=== PATIENT | male | born 1950 | race Two or more races ===

== ENCOUNTER 2022-09-07 13:04 | Inpatient (IN) | payer MEDICARE, OTHER ==
[~2022-09-07] VITALS: Ht 185.4 cm; Wt 81.2 kg
[2022-09-07 16:00] VITALS: BP 145/71
[2022-09-07] MEDS ORDERED: HYDRALAZINE 20MG/ML VIAL IV PRN (19:15)
[2022-09-07 20:00] VITALS: BP 151/93
[2022-09-07] MEDS ORDERED: ACETAMINOPHEN 325MG TABLET PO PRN (20:45)
[2022-09-07] MEDS ORDERED: MAGNESIUM/ALUMINUM HYDROXIDE/SIMETHICONE 30ML UDC PO PRN (20:45)
[2022-09-07] MEDS ORDERED: DOCUSATE SODIUM 100MG CAPSULE PO PRN (20:45)
[2022-09-07] MEDS ORDERED: CLONIDINE 0.1MG TABLET PO PRN (20:45)
[2022-09-07] MEDS ORDERED: IPRATROPIUM/ALBUTEROL 0.5-3(2.5)MG/3ML NEB NEB PRN (20:45)
[2022-09-07 20:53] LABS: BASOPHILS % 0.5 % (0.0-2.0); EOSINOPHILS % 3.9 % (0.0-5.0); HEMATOCRIT. 42.9 % (42.0-52.0); HEMOGLOBIN. 14.7 g/dL (14.0-18.0); MEAN CORPUSCULAR HEMOGLOBIN 32.2 pg (28.0-32.0); MEAN CORPUSCULAR VOLUME 93.9 fL (80.0-94.0); MONOCYTES % 7.6 % (2.0-8.0); PLATELET 293 x1000/uL (130-400); RED BLOOD CELL COUNT 4.57 mill/uL (4.7-6.1); RED CELL DISTRIBUTION WIDTH 14.5 % (11.6-14.6)
[2022-09-07] MEDS ORDERED: ALBUTEROL (0.083%) 2.5MG/3ML NEB HHN PRN (21:00)
[2022-09-07] MEDS ORDERED: IPRATROPIUM BROMIDE (0.02%) 0.5MG/2.5ML NEB HHN PRN (21:00)
[2022-09-07 21:02] LABS: PROTHROMBIN TIME 11.1 sec (9.6-11.0)
[2022-09-07 21:11] LABS: CHLORIDE 98 mEq/L (98-107)
[2022-09-07] MEDS: DEXT 5%/LACTATED RINGERS 1,000 ML IV SCH (21:35)
[2022-09-07 22:18] LABS: CREATINE KINASE MB FRACTION 5.8 ng/mL (0.5-3.6); PHOSPHORUS 3.3 mg/dL (2.5-4.9)
[2022-09-07] MEDS ORDERED: DEXTROSE 50% WATER 50ML SYRINGE IV PRN (22:30)
[2022-09-08] VITALS (32 sets, daily range): BP systolic 78–159; BP diastolic 46–92
[2022-09-08] MEDS: BLOOD SUGAR DIAGNOSTIC STRIP TEST SCH ×4 (07:40→21:20)
[2022-09-08 08:11] LABS: BASOPHILS % 0.4 % (0.0-2.0); EOSINOPHILS % 6.8 % (0.0-5.0); HEMATOCRIT. 42.9 % (42.0-52.0); HEMOGLOBIN. 14.5 g/dL (14.0-18.0); MEAN CORPUSCULAR HEMOGLOBIN 31.5 pg (28.0-32.0); MEAN CORPUSCULAR VOLUME 92.9 fL (80.0-94.0); MEAN PLATELET VOLUME 6.5 fl (7.4-10.4); MONOCYTES % 8.3 % (2.0-8.0); NEUTROPHILS % 57.5 % (40.0-76.0); PLATELET 276 x1000/uL (130-400); RED BLOOD CELL COUNT 4.61 mill/uL (4.7-6.1); RED CELL DISTRIBUTION WIDTH 14.1 % (11.6-14.6)
[2022-09-08 08:19] LABS: CHLORIDE 100 mEq/L (98-107)
[2022-09-08 08:33] LABS: HDL CHOLESTEROL 63 mg/dL (40-59); LDL CHOLESTEROL 42 mg/dL (5-100); T4 FREE 1.11 ng/dL (0.76-1.46)
[2022-09-08] MEDS ORDERED: MORPHINE SULFATE 4 MG/ML CPJ (NOT FOR IM USE) IV PRN (08:45)
[2022-09-08] MEDS: PANTOPRAZOLE SODIUM 40 MG/VIAL IV SCH (09:00)
[2022-09-08] MEDS ORDERED: GADOTERATE MEGLUMINE 5 MMOL/10 ML VIAL IV ONE (09:40)
[2022-09-08] MEDS ORDERED: THROMBIN (BOVINE) 5000 UNITS/VIAL TOP ONE (10:25)
[2022-09-08] MEDS ORDERED: BACITRACIN 15GM TUBE TOP ONE (10:25)
[2022-09-08] MEDS ORDERED: GENTAMICIN SULF 40MG/ML 2ML VIAL ONE (10:25)
[2022-09-08] MEDS ORDERED: LIDOCAINE HCL/EPINEPHRINE 1%-EPI 1:100,000 20 ML VIAL ONE ×2 (10:25)
[2022-09-08] MEDS: DEXT 5%/LACTATED RINGERS 1,000 ML IV SCH ×2 (11:55→17:59)
[2022-09-08] MEDS ORDERED: FENTANYL CITRATE/PF 50MCG/ML 2ML VIAL ONE ×3 (12:35→15:31)
[2022-09-08] MEDS ORDERED: PROPOFOL 200MG/20ML VIAL IV ONE (12:35)
[2022-09-08] MEDS ORDERED: ROCURONIUM BROMIDE 10MG/ML VIAL 5ML IV ONE ×3 (12:35→15:57)
[2022-09-08] MEDS ORDERED: GLYCOPYRROLATE 0.2 MG/ML 2ML VIAL ONE ×2 (14:01→14:58)
[2022-09-08] MEDS ORDERED: CEFAZOLIN SODIUM 1000MG/VIAL ONE ×2 (14:14→14:57)
[2022-09-08] MEDS ORDERED: DEXAMETHASONE 4MG/ML 1ML VIAL ONE (14:57)
[2022-09-08] MEDS ORDERED: ONDANSETRON HCL 4MG/2ML INJ ONE (14:57)
[2022-09-08] MEDS ORDERED: METOCLOPRAMIDE HCL 10MG/2ML VIAL ONE (14:57)
[2022-09-08] MEDS ORDERED: NEOSTIGMINE METHYLSULFATE 1MG/ML 10 ML VIAL ONE (14:58)
[2022-09-08] MEDS ORDERED: EPHEDRINE SULFATE 50MG/ML VIAL ONE (14:59)
[2022-09-08] MEDS ORDERED: KETOROLAC 30MG/ML VIAL ONE (15:31)
[2022-09-08] MEDS ORDERED: PROPOFOL 10MG/ML 100ML 100 ML IV ONE (15:37)
[2022-09-08] MEDS ORDERED: NALOXONE HCL 0.4MG/ML VIAL IV PRN (16:00)
[2022-09-08] MEDS ORDERED: FENTANYL CITRATE/PF 2,500 MCG in SODIUM CHLORIDE 0.9% 200 ML IV PRN (17:00)
[2022-09-08 17:07] LABS: BG BASE EXCESS -7.9 mmol/L (-2.0-2.0); BG CARBOXYHEMOGLOBIN 0.8 % (0.5-1.5); BG DEOXYHEMOGLOBIN 0.6 % (0.0-5.0); BG FRACTION INSPIRED OXYGEN 60; BG HCO3 ACT 18.3 mmol/L (22.0-26.0); BG METHEMOGLOBIN 0.3 % (0.0-1.5); BG OXYGEN SATURATION 99.4 % (92.0-98.5); BG OXYHEMOGLOBIN 98.3 % (94.0-97.0); BG PH 7.279 (7.350-7.450); BG PO2 223.5 mmHg (75.0-100.0); BG SAMPLE SITE ALINE; BG TOTAL HEMOGLOBIN 14.1 g/dL (12.0-18.0); BG VENT MODE VENT - AC
[2022-09-08] MEDS: NICARDIPINE 100 MG in SODIUM CHLORIDE 0.9% 60 ML IV PRN (17:57)
[2022-09-08] MEDS: PROPOFOL 10MG/ML 100ML 100 ML IV PRN (17:58)
[2022-09-08] MEDS: LEVETIRACETAM 500MG PREMIX 100 ML IV SCH (19:03)
[2022-09-08] MEDS: DEXAMETHASONE 4MG/ML 1ML VIAL IV SCH ×2 (20:49→23:45)
[2022-09-08] MEDS ORDERED: CEFAZOLIN SODIUM 1000MG/VIAL IV SCH (22:00)
[2022-09-08] MEDS: CEFAZOLIN 1000MG PREMIX 50 ML IV SCH (22:41)
[2022-09-08 23:21] LABS: BG BASE EXCESS -6.4 mmol/L (-2.0-2.0); BG CARBOXYHEMOGLOBIN 0.3 % (0.5-1.5); BG DEOXYHEMOGLOBIN 2.2 % (0.0-5.0); BG FRACTION INSPIRED OXYGEN 40; BG HCO3 ACT 19.7 mmol/L (22.0-26.0); BG METHEMOGLOBIN 0.2 % (0.0-1.5); BG OXYGEN SATURATION 97.8 % (92.0-98.5); BG OXYHEMOGLOBIN 97.3 % (94.0-97.0); BG PCO2 41.4 mmHg (35.0-45.0); BG PH 7.296 (7.350-7.450); BG PO2 107.4 mmHg (75.0-100.0); BG SAMPLE SITE ALINE; BG TOTAL HEMOGLOBIN 15.3 g/dL (12.0-18.0); BG TOTAL RESPIRATORY RATE 20 b/min; BG VENT MODE VENT - AC
[2022-09-08] MEDS: MORPHINE SULFATE 4 MG/ML CPJ (NOT FOR IM USE) IV PRN (23:45)
[2022-09-09] VITALS (98 sets, daily range): BP systolic 77–137; BP diastolic 26–126
[2022-09-09] MEDS: PROPOFOL 10MG/ML 100ML 100 ML IV PRN (05:11)
[2022-09-09] MEDS: DEXAMETHASONE 4MG/ML 1ML VIAL IV SCH ×3 (05:11→17:47)
[2022-09-09] MEDS: CEFAZOLIN 1000MG PREMIX 50 ML IV SCH ×3 (05:13→21:08)
[2022-09-09] MEDS: BLOOD SUGAR DIAGNOSTIC STRIP TEST SCH ×4 (06:43→21:08)
[2022-09-09] MEDS: MORPHINE SULFATE 4 MG/ML CPJ (NOT FOR IM USE) IV PRN ×3 (07:19→21:09)
[2022-09-09 08:09] LABS: BG CARBOXYHEMOGLOBIN 0.9 % (0.5-1.5); BG DEOXYHEMOGLOBIN 2.1 % (0.0-5.0); BG HCO3 ACT 20.2 mmol/L (22.0-26.0); BG METHEMOGLOBIN 0.3 % (0.0-1.5); BG OXYGEN SATURATION 97.9 % (92.0-98.5); BG OXYHEMOGLOBIN 96.7 % (94.0-97.0); BG PCO2 34.8 mmHg (35.0-45.0); BG PH 7.382 (7.350-7.450); BG PO2 99.6 mmHg (75.0-100.0); BG SAMPLE SITE ALINE; BG TOTAL HEMOGLOBIN 15.3 g/dL (12.0-18.0); BG VENT MODE VENT - AC
[2022-09-09] MEDS: DEXT 5%/LACTATED RINGERS 1,000 ML IV SCH (08:25)
[2022-09-09] MEDS: PANTOPRAZOLE SODIUM 40 MG/VIAL IV SCH (08:56)
[2022-09-09] MEDS: LEVETIRACETAM 500MG PREMIX 100 ML IV SCH ×2 (08:57→21:08)
[2022-09-09] MEDS ORDERED: ONDANSETRON HCL 4MG/2ML INJ IV PRN (13:15)
[2022-09-09 15:38] LABS: BG BASE EXCESS -3.3 mmol/L (-2.0-2.0); BG CARBOXYHEMOGLOBIN 0.3 % (0.5-1.5); BG DEOXYHEMOGLOBIN 4.1 % (0.0-5.0); BG HCO3 ACT 21.6 mmol/L (22.0-26.0); BG METHEMOGLOBIN 0.3 % (0.0-1.5); BG OXYGEN SATURATION 95.9 % (92.0-98.5); BG OXYHEMOGLOBIN 95.3 % (94.0-97.0); BG PCO2 38.6 mmHg (35.0-45.0); BG PH 7.366 (7.350-7.450); BG SAMPLE SITE ALINE; BG VENT MODE COOL AEROSOL T-TUBE
[2022-09-10] VITALS (94 sets, daily range): BP systolic 72–128; BP diastolic 37–65
[2022-09-10] MEDS: NICARDIPINE 100 MG in SODIUM CHLORIDE 0.9% 60 ML IV PRN ×2 (01:01→17:42)
[2022-09-10] MEDS: DEXT 5%/LACTATED RINGERS 1,000 ML IV SCH ×2 (01:02→16:45)
[2022-09-10] MEDS: BLOOD SUGAR DIAGNOSTIC STRIP TEST SCH ×4 (05:33→21:40)
[2022-09-10] MEDS: CEFAZOLIN 1000MG PREMIX 50 ML IV SCH ×3 (05:33→21:40)
[2022-09-10] MEDS: LEVETIRACETAM 500MG PREMIX 100 ML IV SCH ×2 (08:27→21:40)
[2022-09-10] MEDS: PANTOPRAZOLE SODIUM 40 MG/VIAL IV SCH (08:27)
[2022-09-10] MEDS: NICOTINE 14MG PATCH TD SCH (10:44)
[2022-09-10] MEDS: MORPHINE SULFATE 4 MG/ML CPJ (NOT FOR IM USE) IV PRN ×2 (13:23→18:07)
[2022-09-11] VITALS (64 sets, daily range): BP systolic 67–142; BP diastolic 42–76
[2022-09-11] MEDS: BLOOD SUGAR DIAGNOSTIC STRIP TEST SCH ×4 (06:30→20:09)
[2022-09-11] MEDS: LEVETIRACETAM 500MG PREMIX 100 ML IV SCH ×2 (08:00→22:00)
[2022-09-11] MEDS: PANTOPRAZOLE SODIUM 40 MG/VIAL IV SCH (08:00)
[2022-09-11] MEDS: NICOTINE 14MG PATCH TD SCH (08:01)
[2022-09-11] MEDS: DEXT 5%/LACTATED RINGERS 1,000 ML IV SCH (10:19)
[2022-09-11] MEDS: MORPHINE SULFATE 4 MG/ML CPJ (NOT FOR IM USE) IV PRN ×2 (11:20→18:04)
[2022-09-11] MEDS: ACETAMINOPHEN 325MG TABLET PO PRN (14:18)
[2022-09-11] MEDS ORDERED: HYDRALAZINE 5 MG in SODIUM CHLORIDE 0.9% 49.5 ML IV PRN (19:15)
[2022-09-11] MEDS ORDERED: HYDRALAZINE 5 MG in SODIUM CHLORIDE 0.9% 49.75 ML IV PRN (19:15)
[2022-09-12] VITALS: BP 139/80
[2022-09-12] MEDS: DEXT 5%/LACTATED RINGERS 1,000 ML IV SCH ×2 (03:25→20:45)
[2022-09-12 04:00] VITALS: BP 134/62
[2022-09-12 07:19] LABS: BASOPHILS % 0.1 % (0.0-2.0); EOSINOPHILS % 0.4 % (0.0-5.0); HEMATOCRIT. 36.8 % (42.0-52.0); HEMOGLOBIN. 12.8 g/dL (14.0-18.0); LYMPHOCYTES % 18.7 % (20.0-50.0); MEAN CORPUSCULAR HEMOGLOBIN 32.5 pg (28.0-32.0); MEAN CORPUSCULAR VOLUME 93.2 fL (80.0-94.0); MEAN PLATELET VOLUME 7.2 fl (7.4-10.4); NEUTROPHILS % 73.8 % (40.0-76.0); PLATELET 269 x1000/uL (130-400); RED BLOOD CELL COUNT 3.95 mill/uL (4.7-6.1); RED CELL DISTRIBUTION WIDTH 14.1 % (11.6-14.6)
[2022-09-12 07:23] LABS: CHLORIDE 98 mEq/L (98-107)
[2022-09-12] MEDS: BLOOD SUGAR DIAGNOSTIC STRIP TEST SCH ×4 (07:51→21:00)
[2022-09-12] MEDS: LOSARTAN POTASSIUM 50 MG TABLET PO SCH (09:37)
[2022-09-12] MEDS: PANTOPRAZOLE SODIUM 40 MG/VIAL IV SCH (09:37)
[2022-09-12] MEDS: NICOTINE 14MG PATCH TD SCH (09:37)
[2022-09-12] MEDS: MORPHINE SULFATE 4 MG/ML CPJ (NOT FOR IM USE) IV PRN (09:45)
[2022-09-12] MEDS: LEVETIRACETAM 500MG PREMIX 100 ML IV SCH ×2 (11:38→20:46)
[2022-09-12 12:00] VITALS: BP 107/72
[2022-09-12] MEDS: ACETAMINOPHEN 325MG TABLET PO PRN (15:47)
[2022-09-12 16:00] VITALS: BP 117/81
[2022-09-12 20:00] VITALS: BP 138/81
[2022-09-12] MEDS ORDERED: IOHEXOL-300 100 ML BOTTLE ONE (21:22)
[2022-09-13] VITALS: BP 123/78
[2022-09-13] MEDS: MORPHINE SULFATE 4 MG/ML CPJ (NOT FOR IM USE) IV PRN (00:19)
[2022-09-13 04:00] VITALS: BP 122/59
[2022-09-13] MEDS: BLOOD SUGAR DIAGNOSTIC STRIP TEST SCH ×4 (07:20→21:00)
[2022-09-13 08:00] VITALS: BP 127/78
[2022-09-13] MEDS: LEVETIRACETAM 500MG PREMIX 100 ML IV SCH ×2 (08:24→22:35)
[2022-09-13] MEDS: FAMOTIDINE 20MG/2ML VIAL IV SCH ×2 (08:24→22:35)
[2022-09-13] MEDS: LOSARTAN POTASSIUM 50 MG TABLET PO SCH (08:25)
[2022-09-13] MEDS: NICOTINE 14MG PATCH TD SCH (08:25)
[2022-09-13] MEDS ORDERED: GADOTERATE MEGLUMINE 5 MMOL/10 ML VIAL IV ONE (09:48)
[2022-09-13 12:00] VITALS: BP 131/86
[2022-09-13] MEDS: DEXT 5%/LACTATED RINGERS 1,000 ML IV SCH (12:25)
[2022-09-13 16:00] VITALS: BP 137/61
[2022-09-13 20:00] VITALS: BP 155/77
[2022-09-14] VITALS: BP 131/93
[2022-09-14 04:00] VITALS: BP 135/60
[2022-09-14] MEDS: DEXT 5%/LACTATED RINGERS 1,000 ML IV SCH ×2 (05:40→14:05)
[2022-09-14] MEDS: BLOOD SUGAR DIAGNOSTIC STRIP TEST SCH ×4 (07:00→21:44)
[2022-09-14 08:00] VITALS: BP 122/71
[2022-09-14] MEDS: LEVETIRACETAM 500MG PREMIX 100 ML IV SCH (09:21)
[2022-09-14] MEDS: FAMOTIDINE 20MG/2ML VIAL IV SCH (09:21)
[2022-09-14] MEDS: LOSARTAN POTASSIUM 50 MG TABLET PO SCH (09:22)
[2022-09-14] MEDS: NICOTINE 14MG PATCH TD SCH (09:23)
[2022-09-14 12:00] VITALS: BP 124/76
[2022-09-14] MEDS: ACETAMINOPHEN 325MG TABLET PO PRN ×2 (12:07→21:07)
[2022-09-14 16:00] VITALS: BP 126/81
[2022-09-14 20:00] VITALS: BP 146/72
[2022-09-14] MEDS: LEVETIRACETAM 500MG TABLET PO SCH (21:07)
[2022-09-14] MEDS: FAMOTIDINE 20MG TABLET PO SCH (21:08)
[2022-09-14] MEDS ORDERED: KETOROLAC 15MG/ML VIAL IV PRN (21:45)
[2022-09-15] VITALS: BP 142/86
[2022-09-15 04:00] VITALS: BP 140/82
[2022-09-15] MEDS: BLOOD SUGAR DIAGNOSTIC STRIP TEST SCH ×3 (07:26→17:23)
[2022-09-15 08:00] VITALS: BP 137/80
[2022-09-15] MEDS: FAMOTIDINE 20MG TABLET PO SCH (09:26)
[2022-09-15] MEDS: LEVETIRACETAM 500MG TABLET PO SCH (09:26)
[2022-09-15] MEDS: LOSARTAN POTASSIUM 50 MG TABLET PO SCH (09:26)
[2022-09-15] MEDS: NICOTINE 14MG PATCH TD SCH (09:27)
[2022-09-15 09:48] VITALS: BP 137/80
[2022-09-15 12:00] VITALS: BP 138/72
[2022-09-15] MEDS: DEXT 5%/LACTATED RINGERS 1,000 ML IV SCH (12:24)
[2022-09-15 16:00] VITALS: BP 127/73
[2022-09-15] MEDS: ACETAMINOPHEN 325MG TABLET PO PRN (17:35)
== END 2022-09-15 18:20 | DRG 25 ==
LOC: 7WST 17:03 → MICUSO 09-08 18:00 → 6EST 09-11 15:50
PROVIDERS: ADMIT Internal Medicine; ATTEND Internal Medicine
PROC: 00BC0ZZ Excision of Cerebellum, Open Approach (ICD-10-PCS; principal; 2022-09-08)
PROC: 009600Z Drainage of Cerebral Ventricle with Drainage Device, Open Approach (ICD-10-PCS; 2022-09-08)
PROC: 00H032Z Insertion of Monitoring Device into Brain, Percutaneous Approach (ICD-10-PCS; 2022-09-08)
PROC: 4A103BD Monitoring of Intracranial Pressure, Percutaneous Approach (ICD-10-PCS; 2022-09-08)
DX: C79.31 Secondary malignant neoplasm of brain (principal); G92.8 Other toxic encephalopathy; J96.00 Acute respiratory failure, unspecified whether with hypoxia or hypercapnia; E44.1 Mild protein-calorie malnutrition; E87.1 Hypo-osmolality and hyponatremia; G91.9 Hydrocephalus, unspecified; C34.90 Malignant neoplasm of unspecified part of unspecified bronchus or lung; D62 Acute posthemorrhagic anemia; F17.210 Nicotine dependence, cigarettes, uncomplicated; I10 Essential (primary) hypertension; M51.36 Other intervertebral disc degeneration, lumbar region; Z20.822 Contact with and (suspected) exposure to COVID-19; J44.9 Chronic obstructive pulmonary disease, unspecified; Z79.899 Other long term (current) drug therapy; Z68.23 Body mass index [BMI] 23.0-23.9, adult
CPT/HCPCS: 31500; 36415; 36600; 70553; 71045; 71260; 74018; 74177; 80048; 80053; 80061; 80305; 82375; 82550; 82553; 82607; 82728; 82746; 82805; 82962; 83036; 83540; 83550; 83735; 83880; 84100; 84439; 84443; 84478; 84484; 85025; 86850; 86900; 87426; 88307; 88331; 93005; 93970; 94002; 94003; 97110; 97116; 97162; 97166; 97530; A6261; A9577; C1713; C1725; C9113; J0690; J1100; J1580; J1885; J1953; J2270; J2405; J2704; J2710; J2765; J3010; J3490; J7050; J7120; J7121; Q9967